=== PATIENT | female | born 1980 | race Two or more races ===

== ENCOUNTER 2020-09-05 15:30 | Inpatient (IN) | payer OTHER ==
[~2020-09-05] VITALS: Ht 162.6 cm; Wt 71.2 kg
[2020-09-14] MEDS ORDERED: PRENATAL TABLE1 EAC1 (09:01)
== END 2020-09-16 13:57 | disposition home or self-care (01) | DRG 807 ==
LOC: LDR 09-14 06:36 → SURG-SUITE 09-14 06:36 → OB/GYN 09-17 15:30
PROVIDERS: ADMIT Obstetrics & Gynecology Maternal & Fetal Medicine; ATTEND Obstetrics & Gynecology Maternal & Fetal Medicine
PROC: 10E0XZZ Delivery of Products of Conception, External Approach (ICD-10-PCS; principal; 2020-09-14)
PROC: 3E033VJ Introduction of Other Hormone into Peripheral Vein, Percutaneous Approach (ICD-10-PCS; 2020-09-14)
PROC: 4A1HXFZ Monitoring of Products of Conception, Cardiac Rhythm, External Approach (ICD-10-PCS; 2020-09-14)
DX: O48.0 Post-term pregnancy (principal); O70.1 Second degree perineal laceration during delivery; O99.824 Streptococcus B carrier state complicating childbirth; Z37.0 Single live birth; Z3A.40 40 weeks gestation of pregnancy